=== PATIENT | male | born 1960 | race Caucasian/White ===

== ENCOUNTER 2019-09-05 19:25 | Inpatient (IN) ==
[2019-09-05] MEDS ORDERED: Isovue-370 500 ML BOTTLE IVP ONE (19:58)
[2019-09-05 20:10] LABS: ABG Base Excess 9 mEq/L (-2 to 3); ABG HCO3 41 mEq/L (21-27); ABG Oxygen Saturation 99 % (95-98); ABG PCO2 94 mmHg (35-45); ABG PH 7.24 pH Units (7.32-7.45); ABG PO2 162 mmHg (85-104); ABG TCO2 43 mEq/L (20-26); Blood Gas Modality BiLevel
[2019-09-05 20:13] LABS: Basophils # 0.1 K/mcL (0.0-0.2); Basophils % 0.5 %; Eosinophils % 0.2 %; Hemoglobin 12.4 g/dL (12.9-16.9); INR 1.4; Immature Granulocytes % 1.1 % (0-4); Lymphocytes # 1.4 K/mcL (0.6-4.6); Lymphocytes % 11.2 %; Mean Corpuscular Hemoglobin 26.8 pg (28.0-33.3); Mean Corpuscular Volume 86.6 fL (83.0-100.0); Mean Platelet Volume 10.9 fL (9.4-12.4); Monocytes # 0.8 K/mcL (0.0-1.3); Monocytes % 6.5 %; Neutrophils # 9.8 K/mcL (1.6-8.9); Platelet Count 265 K/mcL (140-400); Prothrombin Time 15.5 Seconds (9.4-12.1); Red Blood Count 4.62 M/mcL (4.19-5.50); Red Cell Distribution Width 15.5 % (11.5-14.5); Segmented Neutrophils % 80.5 %; White Blood Count 12.2 K/mcL (4.3-11.1)
[2019-09-05 20:34] LABS: Alanine Aminotransferase 13 Units/L (7-52); Albumin 3.7 g/dL (3.5-5.7); Albumin/Globulin Ratio 1.1 (1.1-2.2); Alkaline Phosphatase 67 Units/L (34-104); Aspartate Amino Transferase 12 Units/L (13-39); BUN/Creatinine Ratio 21 (6-26); Bilirubin,Total 0.3 mg/dL (0.3-1.0); Blood Urea Nitrogen 22 mg/dL (6-20); Carbon Dioxide 36 mEq/L (23-29); Chloride 91 mEq/L (98-107); Globulin 3.5 g/dL (2.4-3.5); Glucose 145 mg/dL (70-105); Magnesium 1.9 mg/dL (1.6-2.6); Osmolality,Calculated 284 (280-300); Potassium 4.1 mEq/L (3.5-5.1); Sodium 134 mEq/L (136-145); Total Protein 7.2 g/dL (6.4-8.9); Troponin I < 0.03 ng/mL (< 0.04); eGFR For African Americans > 60 (> 60); eGFR For Non-African Americans > 60 (> 60)
[2019-09-05 21:01] LABS: ABG Base Excess 11 mEq/L (-2 to 3); ABG HCO3 41 mEq/L (21-27); ABG Oxygen Saturation 97 % (95-98); ABG PCO2 81 mmHg (35-45); ABG PH 7.31 pH Units (7.32-7.45); ABG PO2 109 mmHg (85-104); ABG TCO2 43 mEq/L (20-26); Blood Gas Modality BiLevel
[2019-09-05] MEDS ORDERED: Piperacillin/Tazobactam 3.375 GM in 0.9 % Sodium Chloride Mini Bag 100 ML IVPB ONE (22:48)
[2019-09-05] MEDS ORDERED: Azithromycin 500 MG in 0.9 % Sodium Chloride 250 ML IVPB STA (22:57)
[2019-09-05 23:09] LABS: ABG Base Excess 9 mEq/L (-2 to 3); ABG HCO3 37 mEq/L (21-27); ABG Oxygen Saturation 94 % (95-98); ABG PCO2 72 mmHg (35-45); ABG PH 7.32 pH Units (7.32-7.45); ABG PO2 82 mmHg (85-104); ABG TCO2 40 mEq/L (20-26)
[2019-09-06] MEDS ORDERED: Naloxone 0.4 MG/ML INJ IVP PRN (00:51)
[2019-09-06] MEDS ORDERED: 0.9 % Sodium Chloride 1,000 ML IVC SCH (01:00)
[2019-09-06 02:21] LABS: Basophils # 0.1 K/mcL (0.0-0.2); Basophils % 0.5 %; Eosinophils % 0.3 %; Hematocrit 38.4 % (37.5-50.1); Hemoglobin 12.2 g/dL (12.9-16.9); Immature Granulocytes % 0.7 % (0-4); Lymphocytes # 1.2 K/mcL (0.6-4.6); Lymphocytes % 11.1 %; Mean Corpuscular HGB Conc 31.8 g/dL (31.6-35.5); Mean Corpuscular Hemoglobin 27.5 pg (28.0-33.3); Mean Corpuscular Volume 86.7 fL (83.0-100.0); Mean Platelet Volume 10.6 fL (9.4-12.4); Monocytes # 0.7 K/mcL (0.0-1.3); Monocytes % 6.2 %; Neutrophils # 8.7 K/mcL (1.6-8.9); Platelet Count 231 K/mcL (140-400); Red Blood Count 4.43 M/mcL (4.19-5.50); Red Cell Distribution Width 15.6 % (11.5-14.5); Segmented Neutrophils % 81.2 %; White Blood Count 10.7 K/mcL (4.3-11.1)
[2019-09-06 02:41] LABS: Alanine Aminotransferase 11 Units/L (7-52); Albumin 3.5 g/dL (3.5-5.7); Albumin/Globulin Ratio 1.1 (1.1-2.2); Alkaline Phosphatase 62 Units/L (34-104); Aspartate Amino Transferase 11 Units/L (13-39); BUN/Creatinine Ratio 20 (6-26); Bilirubin,Total 0.5 mg/dL (0.3-1.0); Blood Urea Nitrogen 20 mg/dL (6-20); Calcium 8.8 mg/dL (8.6-10.3); Carbon Dioxide 35 mEq/L (23-29); Chloride 94 mEq/L (98-107); Globulin 3.2 g/dL (2.4-3.5); Glucose 114 mg/dL (70-105); Osmolality,Calculated 279 (280-300); Potassium 3.7 mEq/L (3.5-5.1); Sodium 133 mEq/L (136-145); Total Protein 6.7 g/dL (6.4-8.9); eGFR For African Americans > 60 (> 60); eGFR For Non-African Americans > 60 (> 60)
[2019-09-06 04:49] LABS: Estimated Average Glucose 146 mg/dl
[2019-09-06 04:52] LABS: ABG Base Excess 11 mEq/L (-2 to 3); ABG HCO3 37 mEq/L (21-27); ABG Oxygen Saturation 97 % (95-98); ABG PCO2 59 mmHg (35-45); ABG PH 7.41 pH Units (7.32-7.45); ABG PO2 92 mmHg (85-104); ABG TCO2 39 mEq/L (20-26); Blood Gas Modality BiLevel
[2019-09-06] MEDS ORDERED: *HR* Heparin 5,000 UNIT/ML VIAL SQ SCH (08:00)
[2019-09-06] MEDS: Azithromycin 500 MG in 0.9 % Sodium Chloride 250 ML IVPB SCH (08:51)
[2019-09-06] MEDS ORDERED: Aminoglycoside Consult 1 EACH MC ONE (08:52)
[2019-09-06] MEDS: Piperacillin/Tazobactam 3.375 GM in 0.9 % Sodium Chloride Mini Bag 100 ML IVPB SCH ×2 (08:52→16:16)
[2019-09-06] MEDS ORDERED: 0.9 % Sodium Chloride 500 ML IVC ONE (09:25)
[2019-09-06] MEDS: *HR* Rivaroxaban 10 MG TABLET PO SCH (16:15)
[2019-09-07 01:01] LABS: Basophils # 0.1 K/mcL (0.0-0.2); Basophils % 0.8 %; Eosinophils # 0.4 K/mcL (0.0-0.6); Eosinophils % 5.7 %; Hematocrit 33.5 % (37.5-50.1); Immature Granulocytes % 0.4 % (0-4); Lymphocytes # 1.5 K/mcL (0.6-4.6); Lymphocytes % 19.2 %; Mean Corpuscular HGB Conc 31.3 g/dL (31.6-35.5); Mean Corpuscular Hemoglobin 27.2 pg (28.0-33.3); Mean Corpuscular Volume 86.8 fL (83.0-100.0); Mean Platelet Volume 10.2 fL (9.4-12.4); Monocytes # 0.6 K/mcL (0.0-1.3); Monocytes % 8.2 %; Neutrophils # 5.1 K/mcL (1.6-8.9); Platelet Count 207 K/mcL (140-400); Red Blood Count 3.86 M/mcL (4.19-5.50); Red Cell Distribution Width 16.2 % (11.5-14.5); Segmented Neutrophils % 65.7 %; White Blood Count 7.8 K/mcL (4.3-11.1)
[2019-09-07 01:11] LABS: Hemoglobin 10.5 g/dL (12.9-16.9)
[2019-09-07 01:19] LABS: BUN/Creatinine Ratio 20 (6-26); Blood Urea Nitrogen 19 mg/dL (6-20); Calcium 8.5 mg/dL (8.6-10.3); Carbon Dioxide 35 mEq/L (23-29); Chloride 100 mEq/L (98-107); Glucose 92 mg/dL (70-105); Osmolality,Calculated 286 (280-300); Potassium 3.9 mEq/L (3.5-5.1); Sodium 137 mEq/L (136-145); eGFR For African Americans > 60 (> 60); eGFR For Non-African Americans > 60 (> 60)
[2019-09-07 02:16] LABS: Platelet Estimate Normal (Normal)
[2019-09-07 02:17] LABS: Anisocytosis 1+ (Not Present)
[2019-09-07] MEDS: Piperacillin/Tazobactam 3.375 GM in 0.9 % Sodium Chloride Mini Bag 100 ML IVPB SCH ×4 (03:47→23:22)
[2019-09-07 05:15] LABS: ABG Base Excess 11 mEq/L (-2 to 3); ABG HCO3 39 mEq/L (21-27); ABG Oxygen Saturation 95 % (95-98); ABG PCO2 68 mmHg (35-45); ABG PH 7.37 pH Units (7.32-7.45); ABG PO2 81 mmHg (85-104); ABG TCO2 41 mEq/L (20-26); Blood Gas Modality NIV
[2019-09-07] MEDS: Aspirin Enteric Coated 81 MG Tablet PO SCH (08:29)
[2019-09-07] MEDS: *HR* Rivaroxaban 10 MG TABLET PO SCH (08:29)
[2019-09-07] MEDS: Azithromycin 500 MG in 0.9 % Sodium Chloride 250 ML IVPB SCH (08:30)
[2019-09-08 05:01] LABS: Potassium 4.3 mEq/L (3.5-5.1)
[2019-09-08 05:26] LABS: Calcium 8.3 mg/dL (8.6-10.3)
[2019-09-08 07:02] LABS: Basophils # 0.1 K/mcL (0.0-0.2); Basophils % 0.5 %; Eosinophils # 1.6 K/mcL (0.0-0.6); Eosinophils % 15.9 %; Hematocrit 32.9 % (37.5-50.1); Immature Granulocytes % 0.4 % (0-4); Lymphocytes % 19.1 %; Mean Corpuscular HGB Conc 30.4 g/dL (31.6-35.5); Mean Corpuscular Volume 88.9 fL (83.0-100.0); Mean Platelet Volume 10.7 fL (9.4-12.4); Monocytes # 0.9 K/mcL (0.0-1.3); Monocytes % 8.8 %; Neutrophils # 5.6 K/mcL (1.6-8.9); Platelet Count 190 K/mcL (140-400); Red Cell Distribution Width 15.9 % (11.5-14.5); Segmented Neutrophils % 55.3 %; White Blood Count 10.2 K/mcL (4.3-11.1)
[2019-09-08 07:46] LABS: Platelet Estimate Normal (Normal)
[2019-09-08] MEDS: Piperacillin/Tazobactam 3.375 GM in 0.9 % Sodium Chloride Mini Bag 100 ML IVPB SCH ×2 (08:35→16:55)
[2019-09-08] MEDS: Azithromycin 500 MG in 0.9 % Sodium Chloride 250 ML IVPB SCH (08:36)
[2019-09-08] MEDS: Aspirin Enteric Coated 81 MG Tablet PO SCH (08:38)
[2019-09-08] MEDS: *HR* Rivaroxaban 10 MG TABLET PO SCH (08:38)
[2019-09-08] MEDS: 0.9 % Sodium Chloride 1,000 ML IVC SCH (11:23)
[2019-09-08] MEDS ORDERED: *HR* Heparin 5,000 UNIT/ML VIAL IVP ONE (13:20)
[2019-09-08] MEDS ORDERED: Heparin 25,000 UNIT/250 ML D5W 25,000 UNIT/250 ML IV.SOLN IVC SCH (13:30)
[2019-09-08 14:53] LABS: Hematocrit 36.1 % (37.5-50.1); Hemoglobin 10.9 g/dL (12.9-16.9); Mean Corpuscular HGB Conc 30.2 g/dL (31.6-35.5); Mean Corpuscular Volume 89.4 fL (83.0-100.0); Mean Platelet Volume 10.6 fL (9.4-12.4); Platelet Count 209 K/mcL (140-400); Red Blood Count 4.04 M/mcL (4.19-5.50); Red Cell Distribution Width 15.9 % (11.5-14.5); White Blood Count 8.8 K/mcL (4.3-11.1)
[2019-09-08 15:06] LABS: INR 1.9; Prothrombin Time 21.1 Seconds (9.4-12.1)
[2019-09-08 15:11] LABS: Calcium 8.7 mg/dL (8.6-10.3); Heparin anti-factor XA UFH > 2.00 IU/mL (0.30-0.70); Potassium 3.5 mEq/L (3.5-5.1)
[2019-09-08 15:28] LABS: Activated Partial Thrombo Time 37.8 Seconds (26.0-36.0)
[2019-09-08] MEDS ORDERED: *HR* Heparin 5,000 UNIT/ML VIAL IVP PRN ×2 (21:00)
[2019-09-08 21:13] LABS: Bilirubin,Urine Negative (Negative); Blood,Urine Large (Negative); Clarity,Urine Cloudy (Clear); Color,Urine Yellow (Yellow); Glucose,Urine (UA) Normal (Normal); Ketones,Urine Negative (Negative); Leukocyte Esterase,Urine Small (Negative); Nitrite,Urine Negative (Negative); Protein,Urine 30 mg/dL (Neg-Trace); Urobilinogen,Urine Normal (Normal)
[2019-09-08 21:16] LABS: Squamous Epithelial Cell,Urine Many per lpf (None-Few)
[2019-09-08 21:48] LABS: Hyaline Casts,Urine None Seen per lpf (None-Few); RBC,Urine 50-100 per hpf (0-3)
[2019-09-08 21:49] LABS: Bacteria,Urine Few per hpf (None-Few)
[2019-09-09] MEDS: 0.9 % Sodium Chloride 1,000 ML IVC SCH ×2 (00:11→15:59)
[2019-09-09] MEDS: Piperacillin/Tazobactam 3.375 GM in 0.9 % Sodium Chloride Mini Bag 100 ML IVPB SCH ×3 (00:12→16:00)
[2019-09-09] MEDS: Heparin 25,000 UNIT/250 ML D5W 25,000 UNIT/250 ML IV.SOLN IVC SCH ×2 (00:15→12:30)
[2019-09-09 07:38] LABS: Basophils % 0.4 %; Eosinophils # 1.9 K/mcL (0.0-0.6); Eosinophils % 18.5 %; Hematocrit 33.6 % (37.5-50.1); Immature Granulocytes % 0.2 % (0-4); Lymphocytes # 1.4 K/mcL (0.6-4.6); Lymphocytes % 13.6 %; Mean Corpuscular HGB Conc 29.8 g/dL (31.6-35.5); Mean Corpuscular Volume 90.6 fL (83.0-100.0); Mean Platelet Volume 10.6 fL (9.4-12.4); Monocytes # 0.7 K/mcL (0.0-1.3); Monocytes % 6.5 %; Neutrophils # 6.2 K/mcL (1.6-8.9); Platelet Count 189 K/mcL (140-400); Red Blood Count 3.71 M/mcL (4.19-5.50); Red Cell Distribution Width 15.9 % (11.5-14.5); Segmented Neutrophils % 60.8 %; White Blood Count 10.2 K/mcL (4.3-11.1)
[2019-09-09 07:55] LABS: Calcium 8.6 mg/dL (8.6-10.3); Potassium 4.1 mEq/L (3.5-5.1)
[2019-09-09] MEDS: Azithromycin 500 MG in 0.9 % Sodium Chloride 250 ML IVPB SCH (08:19)
[2019-09-09] MEDS: Aspirin Enteric Coated 81 MG Tablet PO SCH (08:19)
[2019-09-10] MEDS: Piperacillin/Tazobactam 3.375 GM in 0.9 % Sodium Chloride Mini Bag 100 ML IVPB SCH ×4 (00:37→23:26)
[2019-09-10 01:10] LABS: Basophils # 0.1 K/mcL (0.0-0.2); Basophils % 0.5 %; Eosinophils # 1.6 K/mcL (0.0-0.6); Eosinophils % 16.2 %; Hemoglobin 9.9 g/dL (12.9-16.9); Immature Granulocytes % 0.3 % (0-4); Lymphocytes # 1.2 K/mcL (0.6-4.6); Lymphocytes % 12.6 %; Mean Corpuscular Hemoglobin 26.8 pg (28.0-33.3); Mean Corpuscular Volume 89.4 fL (83.0-100.0); Mean Platelet Volume 11.2 fL (9.4-12.4); Monocytes # 0.6 K/mcL (0.0-1.3); Neutrophils # 6.3 K/mcL (1.6-8.9); Platelet Count 203 K/mcL (140-400); Red Blood Count 3.69 M/mcL (4.19-5.50); Red Cell Distribution Width 15.9 % (11.5-14.5); Segmented Neutrophils % 64.4 %; White Blood Count 9.9 K/mcL (4.3-11.1)
[2019-09-10 01:25] LABS: Calcium 8.3 mg/dL (8.6-10.3); Potassium 4.2 mEq/L (3.5-5.1)
[2019-09-10] MEDS: 0.9 % Sodium Chloride 1,000 ML IVC SCH ×2 (04:30→16:00)
[2019-09-10] MEDS: Aspirin Enteric Coated 81 MG Tablet PO SCH (09:11)
[2019-09-10] MEDS: Heparin 25,000 UNIT/250 ML D5W 25,000 UNIT/250 ML IV.SOLN IVC SCH ×3 (09:12→16:01)
[2019-09-10] MEDS: Azithromycin 500 MG in 0.9 % Sodium Chloride 250 ML IVPB SCH (09:12)
[2019-09-10] MEDS ORDERED: Nitroglycerin 0.4 MG TAB.SUBL SL ONE (15:49)
[2019-09-10] MEDS ORDERED: Nitroglycerin 0.4 MG TAB.SUBL SL PRN (15:50)
[2019-09-11] MEDS ORDERED: *HR* Labetalol 20 MG/4 ML SYRINGE IVP ONE (00:32)
[2019-09-11 02:23] LABS: Basophils % 0.4 %; Eosinophils # 1.4 K/mcL (0.0-0.6); Hematocrit 32.3 % (37.5-50.1); Hemoglobin 9.8 g/dL (12.9-16.9); Immature Granulocytes % 0.3 % (0-4); Lymphocytes # 1.4 K/mcL (0.6-4.6); Lymphocytes % 14.1 %; Mean Corpuscular HGB Conc 30.3 g/dL (31.6-35.5); Mean Corpuscular Hemoglobin 26.9 pg (28.0-33.3); Mean Corpuscular Volume 88.7 fL (83.0-100.0); Mean Platelet Volume 11.1 fL (9.4-12.4); Monocytes # 0.5 K/mcL (0.0-1.3); Monocytes % 5.3 %; Neutrophils # 6.7 K/mcL (1.6-8.9); Platelet Count 185 K/mcL (140-400); Red Blood Count 3.64 M/mcL (4.19-5.50); Segmented Neutrophils % 65.9 %; White Blood Count 10.2 K/mcL (4.3-11.1)
[2019-09-11 02:41] LABS: Calcium 8.6 mg/dL (8.6-10.3); Potassium 4.2 mEq/L (3.5-5.1)
[2019-09-11] MEDS: Heparin 25,000 UNIT/250 ML D5W 25,000 UNIT/250 ML IV.SOLN IVC SCH ×2 (04:44→18:03)
[2019-09-11] MEDS: 0.9 % Sodium Chloride 1,000 ML IVC SCH (05:11)
[2019-09-11] MEDS: Aspirin Enteric Coated 81 MG Tablet PO SCH (07:51)
[2019-09-11] MEDS: Piperacillin/Tazobactam 3.375 GM in 0.9 % Sodium Chloride Mini Bag 100 ML IVPB SCH ×3 (07:51→23:35)
[2019-09-12 05:46] LABS: Basophils % 0.4 %; Eosinophils % 18.9 %; Hematocrit 31.2 % (37.5-50.1); Hemoglobin 9.3 g/dL (12.9-16.9); Immature Granulocytes % 0.2 % (0-4); Lymphocytes # 1.3 K/mcL (0.6-4.6); Lymphocytes % 12.8 %; Mean Corpuscular HGB Conc 29.8 g/dL (31.6-35.5); Mean Corpuscular Hemoglobin 27.1 pg (28.0-33.3); Mean Platelet Volume 10.7 fL (9.4-12.4); Monocytes # 0.7 K/mcL (0.0-1.3); Monocytes % 6.6 %; Neutrophils # 6.3 K/mcL (1.6-8.9); Platelet Count 173 K/mcL (140-400); Red Blood Count 3.43 M/mcL (4.19-5.50); Red Cell Distribution Width 16.1 % (11.5-14.5); Segmented Neutrophils % 61.1 %; White Blood Count 10.4 K/mcL (4.3-11.1)
[2019-09-12 06:06] LABS: Calcium 8.8 mg/dL (8.6-10.3); Potassium 4.6 mEq/L (3.5-5.1)
[2019-09-12] MEDS ORDERED: Preparation H Ointment 30 GM TUBE TP PRN (06:59)
[2019-09-12] MEDS: Piperacillin/Tazobactam 3.375 GM in 0.9 % Sodium Chloride Mini Bag 100 ML IVPB SCH ×2 (07:42→15:58)
[2019-09-12] MEDS: Aspirin Enteric Coated 81 MG Tablet PO SCH (07:42)
[2019-09-12] MEDS: Heparin 25,000 UNIT/250 ML D5W 25,000 UNIT/250 ML IV.SOLN IVC SCH (08:37)
[2019-09-12] MEDS ORDERED: *HR* Heparin 10,000 UNIT/10 ML VIAL IV PRN (09:48)
[2019-09-12] MEDS ORDERED: 0.9 % Sodium Chloride 250 ML IVC PRN (09:48)
[2019-09-12] MEDS ORDERED: 0.9 % Sodium Chloride 1,000 ML PRIME SCH (10:00)
[2019-09-12] MEDS ORDERED: *HR* Heparin 5,000 UNIT/ML VIAL ONE (11:59)
[2019-09-12 15:52] LABS: Hepatitis B Surface Antibody < 3.10 mIU/mL
[2019-09-13] MEDS: Piperacillin/Tazobactam 3.375 GM in 0.9 % Sodium Chloride Mini Bag 100 ML IVPB SCH ×3 (00:15→10:54)
[2019-09-13] MEDS: Heparin 25,000 UNIT/250 ML D5W 25,000 UNIT/250 ML IV.SOLN IVC SCH (00:16)
[2019-09-13 05:34] LABS: Basophils % 0.4 %; Eosinophils % 21.1 %; Hematocrit 26.8 % (37.5-50.1); Immature Granulocytes % 0.2 % (0-4); Lymphocytes # 1.5 K/mcL (0.6-4.6); Lymphocytes % 14.9 %; Mean Corpuscular HGB Conc 29.9 g/dL (31.6-35.5); Mean Corpuscular Hemoglobin 27.2 pg (28.0-33.3); Mean Corpuscular Volume 91.2 fL (83.0-100.0); Mean Platelet Volume 10.9 fL (9.4-12.4); Monocytes # 0.8 K/mcL (0.0-1.3); Monocytes % 7.4 %; Neutrophils # 5.7 K/mcL (1.6-8.9); Platelet Count 188 K/mcL (140-400); Red Blood Count 2.94 M/mcL (4.19-5.50); Red Cell Distribution Width 15.9 % (11.5-14.5); White Blood Count 10.2 K/mcL (4.3-11.1)
[2019-09-13 05:44] LABS: Eosinophils # 2.2 K/mcL (0.0-0.6)
[2019-09-13 05:49] LABS: Calcium 8.7 mg/dL (8.6-10.3); Potassium 4.2 mEq/L (3.5-5.1)
[2019-09-13 06:10] LABS: Platelet Estimate Normal (Normal)
[2019-09-13] MEDS ORDERED: 0.9 % Sodium Chloride 250 ML IVC PRN (07:06)
[2019-09-13] MEDS ORDERED: *HR* Heparin 10,000 UNIT/10 ML VIAL IV PRN (09:35)
[2019-09-13] MEDS: Aspirin Enteric Coated 81 MG Tablet PO SCH ×2 (10:11→10:54)
[2019-09-13 11:56] VITALS: BP 148/82
== END 2019-09-13 15:10 | disposition short-term general hospital (02) | DRG 139 ==
LOC: 2NNU 19:25 → EMEROOARM 19:25 → 2NNU 23:42 → SUATTDRO 09-06 00:51
PROVIDERS: ADMIT Internal Medicine; ATTEND Internal Medicine